=== PATIENT | female | born 1995 | race Caucasian/White ===

== ENCOUNTER 2017-09-24 11:38 | Emergency (ER) | payer SELFPAY ==
[~2017-09-24] VITALS: Ht 174 cm; Wt 60.0 kg
[~2017-09-24 11:38] MED LIST: AMOXICILLIN500 MG PO; AMOXICILLIN875 MG OR; NAPROSYN500 MG PO; NASONEX50 MCG/AC NAB; NO CURRENT MEDS; PHENERGAN SUPP RE; TESSALON PER100 MG PO; TYLENOL325 MG OR; ZPAK PO
[2017-09-24] MEDS ORDERED: BIRTHCONTROL (11:58)
[2017-09-24] MEDS ORDERED: BENADRYL25 M1 PO (12:22)
[2017-09-24] MEDS ORDERED: PREDNISONE10 MG PO (12:22)
[2017-09-24 13:04] VITALS: BP 107/59
== END 2017-09-24 13:04 | disposition home or self-care (01) | DRG 916 ==
LOC: ED 11:38
DX: T78.40XA Allergy, unspecified, initial encounter (principal); X58.XXXA Exposure to other specified factors, initial encounter

== ENCOUNTER 2018-04-12 18:54 | Emergency (ER) | payer SELFPAY ==
[~2018-04-12] VITALS: Ht 174 cm; Wt 88.6 kg
[~2018-04-12 18:54] MED LIST changes: +BENADRYL25 M1 PO; +BIRTHCONTROL; +PREDNISONE10 MG PO
[2018-04-12 20:10] LABS: HEMATOCRIT 36.2 % (37.0-47.0); HEMOGLOBIN 12.1 g/dl (12.0-16.0); IMMATURE GRANULOCYTES 0.3 % (0.0-5.0); MEAN CELL VOLUME 92.6 fL CALC (80.0-100.0); MEAN CORPUSCULAR HGB 30.9 pG CALC (26.0-32.0); MEAN CORPUSCULAR HGB CONC 33.4 g/L CALC (32.0-36.0); NEUT# 3.87 thou/uL (2.00-7.15); RED BLOOD COUNT 3.91 mill/uL (4.20-5.60); RED CELL DISTRI WIDTH 13.1 % (11.5-15.5); URINE BILIRUBIN - DIPSTICK NEGATIVE (NEGATIVE); URINE BLOOD DIPSTICK LARGE (NEGATIVE); URINE COLOR YELLOW; URINE GLUCOSE - DIPSTICK NEGATIVE (NEGATIVE); URINE KETONE NEGATIVE (NEGATIVE); URINE LEUK ESTERASE NEGATIVE (NEGATIVE); URINE NITRITE - DIPSTICK NEGATIVE (Negative); URINE PROTEIN - DIPSTICK NEGATIVE (NEG-TRACE)
[2018-04-12 20:12] LABS: URINE CLARITY CLEAR
[2018-04-12 20:19] LABS: URINE SQUAMOUS EPITHELIAL CELL FEW EPI/hpf (0-FEW); URINE WBC 0-2 WBC/hpf (0-5)
[2018-04-12 20:24] LABS: BUN 12 mg/dL (7-17); BUN/CREATININE RATIO 18 (12-20 (CALC)); CARBON DIOXIDE 24 mmol/l (22-30); CHLORIDE 106 mmol/l (95-108); CREATININE 0.7 mg/dL (0.5-1.0); GFR > 60 ML/MIN (>=60 (CALC)); GFR FOR AFR.AMER. > 60 ML/MIN (>=60 (CALC)); SODIUM 139 mmol/l (137-146)
[2018-04-12 20:35] LABS: ANION GAP 13 (6-22 (CALC)); POTASSIUM 3.8 mmol/l (3.5-5.1)
[2018-04-12 20:41] LABS: BETA-HCG, QUANT(RESULT NUMBER) 13840 mIU/mL
[2018-04-12] MEDS ORDERED: PRENATAL1 TA1 PO (21:09)
[2018-04-12 21:30] VITALS: BP 121/70
== END 2018-04-12 21:30 | disposition home or self-care (01) | DRG 833 ==
LOC: ED 18:54
PROVIDERS: Emergency Medicine
DX: O20.9 Hemorrhage in early pregnancy, unspecified (principal); R10.30 Lower abdominal pain, unspecified; M54.5 Low back pain; Z3A.01 Less than 8 weeks gestation of pregnancy

== ENCOUNTER 2018-04-19 07:22 | Emergency (ER) | payer MEDICAID ==
[~2018-04-19] VITALS: Ht 174 cm; Wt 79.0 kg
[~2018-04-19 07:22] MED LIST changes: +PRENATAL1 TA1 PO
[2018-04-19 07:57] LABS: HEMATOCRIT 36.9 % (37.0-47.0); HEMOGLOBIN 12.2 g/dl (12.0-16.0); IMMATURE GRANULOCYTES 0.4 % (0.0-5.0); MEAN CELL VOLUME 91.3 fL CALC (80.0-100.0); MEAN CORPUSCULAR HGB 30.2 pG CALC (26.0-32.0); MEAN CORPUSCULAR HGB CONC 33.1 g/L CALC (32.0-36.0); NEUT# 4.61 thou/uL (2.00-7.15); RED BLOOD COUNT 4.04 mill/uL (4.20-5.60)
[2018-04-19 10:38] VITALS: BP 105/58
== END 2018-04-19 10:51 | disposition home or self-care (01) ==
LOC: ED 07:22
PROVIDERS: Family Medicine
DX: O02.1 Missed abortion (principal); Z3A.01 Less than 8 weeks gestation of pregnancy

== ENCOUNTER 2018-09-28 12:31 | Emergency (ER) | payer OTHER ==
[~2018-09-28] VITALS: Ht 174 cm; Wt 91.0 kg
[2018-09-28 15:25] VITALS: BP 116/60
== END 2018-09-28 15:25 | disposition home or self-care (01) | DRG 556 ==
LOC: ED 12:31
DX: M25.511 Pain in right shoulder (principal); S20.211A Contusion of right front wall of thorax, initial encounter; S70.11XA Contusion of right thigh, initial encounter; S80.12XA Contusion of left lower leg, initial encounter; V43.62XA Car passenger injured in collision with other type car in traffic accident, initial encounter

== ENCOUNTER 2019-04-22 14:35 | Emergency (ER) | payer MEDICAID ==
[~2019-04-22] VITALS: Ht 174 cm; Wt 95.5 kg
[2019-04-22 15:37] LABS: HEMATOCRIT 33.9 % (37.0-47.0); HEMOGLOBIN 11.4 g/dl (12.0-16.0); IMMATURE GRANULOCYTES 1.2 % (0.0-5.0); MEAN CELL VOLUME 92.1 fL CALC (80.0-100.0); MEAN CORPUSCULAR HGB CONC 33.6 g/L CALC (32.0-36.0); NEUT# 5.46 thou/uL (2.00-7.15); RED BLOOD COUNT 3.68 mill/uL (4.20-5.60); RED CELL DISTRI WIDTH 13.5 % (11.5-15.5)
[2019-04-22 15:45] LABS: ANION GAP 10 (6-22 (CALC)); BUN 8 mg/dL (7-17); BUN/CREATININE RATIO 17 (12-20 (CALC)); CARBON DIOXIDE 26 mmol/l (22-30); CHLORIDE 103 mmol/l (95-108); CREATININE 0.5 mg/dL (0.5-1.0); GFR > 60 ML/MIN (>=60 (CALC)); GFR FOR AFR.AMER. > 60 ML/MIN (>=60 (CALC)); POTASSIUM 4.1 mmol/l (3.5-5.1); SODIUM 135 mmol/l (137-146)
[2019-04-22 16:01] LABS: BETA-HCG, QUANT(RESULT NUMBER) 13706 mIU/mL
[2019-04-22 20:19] VITALS: BP 101/61
== END 2019-04-22 20:20 | disposition left against medical advice (07) | DRG 833 ==
LOC: ED 14:35
PROVIDERS: Family Medicine
DX: O26.892 Other specified pregnancy related conditions, second trimester (principal); R07.9 Chest pain, unspecified; R79.89 Other specified abnormal findings of blood chemistry; Z3A.24 24 weeks gestation of pregnancy